=== PATIENT | female | born 1960 | race Asian ===

== ENCOUNTER 2019-06-22 07:44 | Day surgery (SDC) | payer BC | END 2019-06-22 09:30 | disposition home or self-care (01) | LOC: OR 07:44 | PROC: 3E0R33Z Introduction of Anti-inflammatory into Spinal Canal, Percutaneous Approach (ICD-10-PCS; principal; 2019-06-22) | PROC: B01BYZZ Fluoroscopy of Spinal Cord using Other Contrast (ICD-10-PCS; 2019-06-22) | DX: M51.16 Intervertebral disc disorders with radiculopathy, lumbar region (principal) | CPT/HCPCS: J1020; J2270 ==